=== PATIENT | female | born 2005 | race Two or more races ===

== ENCOUNTER 2023-01-12 08:10 | Emergency (ER) | payer BC, MEDICAID ==
[~2023-01-12] VITALS: Ht 162.6 cm; Wt 65.4 kg
[2023-01-12 08:12] VITALS: BP 112/68; PULSE 70; TEMP 98.1
[2023-01-12 08:17] VITALS: RESP 16; O2SAT 96
[2023-01-12 08:56] LABS: Urine Bacteria NONE SEEN /hpf (None Seen); Urine Blood Negative /uL (Negative); Urine Clarity HAZY (Clear); Urine Color Yellow (Yellow); Urine Mucus FEW (None Seen); Urine Protein, UAD TRACE (Negative); Urine Specific Gravity 1.029 (1.001-1.035); Urine Urobilinogen Normal (Negative); Urine WBC 10 /hpf (0 - 5); Urine pH 5.5 (5.0-8.0)
[2023-01-12] MEDS ORDERED: CETI10CA PO (09:08)
== END 2023-01-12 09:15 | disposition home or self-care (01) ==
LOC: ER 08:10
DX: J30.81 Allergic rhinitis due to animal (cat) (dog) hair and dander (principal); R05.9 Cough, unspecified
CPT/HCPCS: 71045; 81001